=== PATIENT | female | born 1965 | race American Indian/Alaskan Native ===

== ENCOUNTER 2018-03-24 12:14 | Emergency (ER) | payer OTHER ==
[2018-03-24 12:49] VITALS: RESP 18; TEMP 98.7
[2018-03-24] MEDS ORDERED: Sodium Chloride 0.9% 500 ML IV STA (13:19)
--- NOTE | 2018-03-24 13:22 | ED PDOC ---
Arrival/HPI - General Chief Complaint: GI Problem Time Seen by Provider: 03/24/18 12:28 Historian: Patient - History of Present Illness Narrative History of Present Illness (Text): 03/24/18 13:23 52 f with pmhx of stenosis presents to the ED with diarrhea for the past 2 months. Patient reports constant diarrhea episodes and states she experiences chills. Patient states her primary care doctor advised her to drink water and see a GI specialist. Patient notes her appointment with GI doctor is on Monday but she came to the ER today due to persistent symptoms. Patient denies any fever, nausea, vomiting or any other complaints. PMD: Dr. Oswald GI Doctor: Dr. Feng Time/Duration: > month (2 months) Symptom Onset: Gradual Symptom Course: Unchanged Activities at Onset: Light Context: Home Past Medical History - Provider Review Nursing Documentation Reviewed: Yes - Cardiac Hx Cardiac Disorders: No - Pulmonary Hx Respiratory Disorders: No - Neurological Hx Neurological Disorder: No - HEENT Hx HEENT Disorder: No - Renal Hx Renal Disorder: No - Endocrine/Metabolic Hx Endocrine Disorders: No - Hematological/Oncological Hx Blood Disorders: No - Integumentary Hx Dermatological Disorder: No - Musculoskeletal/Rheumatological Hx Arthritis: Yes Hx Back Pain: Yes - Psychiatric Hx Substance Use: No - Surgical History Other/Comment: Left breast cancer Family/Social History - Physician Review Nursing Documentation Reviewed: Yes Family/Social History: No Known Family HX Smoking Status: Never Smoked Hx Alcohol Use: No Hx Substance Use: No Allergies/Home Meds Allergies/Adverse Reactions: Allergies Sulfa (Sulfonamide Antibiotics) Allergy (Verified 03/24/18 12:50) URTICARIA Review of Systems - Physician Review All systems were reviewed & negative as marked: Yes - Review of Systems Constitutional: Other (chills). absent: Fevers Gastrointestinal: Diarrhea. absent: Nausea, Vomiting Physical Exam - Physical Exam Narrative Physical Exam (Text): 03/24/18 13:30 Gen: VS reviewed, alert, well developed, well nourished, nontoxic, mild distress. ENT: dry mucous membrane. Eye: EOMI, PERRL. Neck: no JVD, supple, no adenopathy. CV: regular rate, regular rhythm, no rubs, no murmur, no gallops, S1, S2, pulses equal and strong. Pulm: no distress, clear to auscultation, no wheeze, no rhonchi, breath sounds equal, no rales. Abd: soft, nontender, no guarding, no rebound, no rigidity, normal bowel sounds. Ext: no edema. Skin: good color, no rash, no cyanosis. Psych: responds appropriately to questions, normal affect. Neuro: oriented x 3, CN2-12 intact grossly, motor intact, sensation intact. Vital Signs Reviewed: Yes Vital Signs Temp Pulse Resp BP Pulse Ox 03/24/18 12:47 98.7 F 97 H 18 121/89 99 Temperature: Afebrile Blood Pressure: Normal Pulse: Tachycardic Respiratory Rate: Normal Appearance: Positive for: Well-Appearing, Non-Toxic Medical Decision Making ED Course and Treatment: 03/24/18 15:59 patient seen for chronic diarrhea, intermittent with formed stools, no fever, no bloody stools, c. diff is on the differential however i will defer antibiotics at this time as the patient has unremarkable labs, is nontoxic, has no bloody stools or abdominal pain. patient has an upcoming appt with a gastroenteroloigst as will be schedule for a colonoscopy. patient understands and agrees with plan to discharge and will wait for stools studies to dictate future medical management. 03/25/18 14:49 today received phone call from lab regarding positive c. diff studies. i have placed multiple phone calls to the patient's under the numbers provided. i have also placed a call to dr. feng to inform him of the abnormal finding. it was agreed to placed the patient on flagyl and for the patient to keep her upcoming appt. - Scribe Statement The provider has reviewed the documentation as recorded by the Adis Tom All medical record entries made by the Scribe were at my direction and personally dictated by me. I have reviewed the chart and agree that the record accurately reflects my personal performance of the history, physical exam, medical decision making, and the department course for this patient. I have also personally directed, reviewed, and agree with the discharge instructions and disposition. Disposition/Present on Arrival - Present on Arrival Any Indicators Present on Arrival: No History of DVT/PE: No History of Uncontrolled Diabetes: No Urinary Catheter: No History of Decub. Ulcer: No History Surgical Site Infection Following: None - Disposition Have Diagnosis and Disposition been Completed?: Yes Diagnosis: Chronic diarrhea Disposition: HOME/ ROUTINE Disposition Time: 16:02 Patient Plan: Discharge Condition: STABLE Discharge Instructions (ExitCare): Diarrhea in Adolescents and Adults Additional Instructions: Keep your appointment with the incinerator plant laborer. Let your doctor know that we sent your stools for studies for analysis. you can retrieve the results with medical records to take to your doctor. HILLARY MIKE, thank you for letting us take care of you today. Your provider was Dr. Oscar Silvestre and you were treated for chronic diarrhea. The emergency medical care you received today was directed at your acute symptoms. If you were prescribed any medication, please fill it and take as directed. It may take several days for your symptoms to resolve. Return to the Emergency Department if your symptoms worsen, do not improve, or if you have any other problems. Please contact your doctor or call one of the physicians/clinics you have been referred to that are listed on the Patient Visit Information form that is included in your discharge packet. Bring any paperwork you were given at discharge with you along with any medications you are taking to your follow up visit. Our treatment cannot replace ongoing medical care by a primary care provider outside of the emergency department. Thank you for allowing the [facility] team to be part of your care today. If you had an X-Ray or CT scan: A Radiologist will review the ED reading if any change in treatment is needed we will contact you. If you had a blood, urine, or wound culture: It will take several days for the results, if any change in treatment is needed we will contact you. If you had an STI test: It will take 48 hours for the results. Please call after 1 week if you have not heard back. Referrals: PCP,NO [Primary Care Provider] - Follow up with primary Forms: [employer] (Arabic)
[2018-03-24 14:26] LABS: BASO # 0.01 K/mm3 (0.0-2.0); BASO % 0.2 % (0.0-3.0); EOS # 0.1 (0.0-0.7); EOS % 1.1 % (1.5-5.0); GRAN # 3.7 (1.4-6.5); GRAN % 67.9 % (50.0-68.0); HEMOGLOBIN 16.6 g/dL (12.0-16.0); LYMPH # 1.2 (1.2-3.4); MEAN CELL VOLUME 90.6 fl (80.0-105.0); MEAN CORPUSCULAR HEMOGLOBIN 31.9 pg (25.0-35.0); MEAN CORPUSCULAR HGB CONC 35.2 g/dl (31.0-37.0); MEAN PLATELET VOLUME 9.9 fl (7.0-11.0); MONO # 0.5 (0.1-0.6); MONO % 8.8 % (1.0-6.0); RBC 5.21 10^6/uL (3.5-6.1); RED CELL DISTRIBUTION WIDTH 13.1 % (11.5-14.5); WHITE BLOOD COUNT 5.5 10^3/uL (4.5-11.0)
[2018-03-24 14:40] LABS: ALBUMIN 4.7 g/dL (3.0-4.8); BLOOD UREA NITROGEN 13 mg/dL (7-21); CALCIUM 9.7 mg/dL (8.4-10.5); GFR NON-AFRICAN AMERICAN > 60
[2018-03-24 14:48] LABS: ALT/SGPT 22 U/L (7-56); AST/SGOT 35 U/L (14-36)
[2018-03-24 16:26] VITALS: BP 132/70; PULSE 78; O2SAT 98
== END 2018-03-24 16:25 | disposition home or self-care (01) ==
LOC: ED 12:14
DX: K52.9 Noninfective gastroenteritis and colitis, unspecified (principal)

== ENCOUNTER 2018-07-01 12:20 | Emergency (ER) | payer OTHER ==
[2018-07-01 12:39] VITALS: RESP 18
[2018-07-01] MEDS ORDERED: Sodium Chloride 0.9% 1,000 ML IV STA (12:59)
[2018-07-01] MEDS ORDERED: Atrop/Hyosc/Scopal/PB Elixir (120 ml) PO STA (12:59)
[2018-07-01] MEDS ORDERED: Alum-Mag Hydrox-Simethicone Susp (30 mL) PO STA (12:59)
[2018-07-01 13:13] LABS: PH,URINE 6.5 (4.7-8.0); URINE BILIRUBIN MODERATE (NEGATIVE); URINE BLOOD LARGE (NEGATIVE); URINE GLUCOSE (UA) NEGATIVE (NEGATIVE); URINE LEUKOCYTE ESTERASE MODERATE Leu/uL (NEGATIVE); URINE PROTEIN >=300 mg/dL (<30 mg/dL)
[2018-07-01 13:15] LABS: URINE APPEARANCE BLOODY (CLEAR); URINE COLOR DARK BROWN (YELLOW)
[2018-07-01 13:22] LABS: URINE BACTERIA LARGE /hpf; URINE RBC TNTC /hpf (0-2); URINE WBC TNTC /hpf (0-6)
--- NOTE | 2018-07-01 13:24 | ED PDOC ---
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 Patient describes pain similar to menstrual cramping, however with associated dysuria starting this morning. Also, patient mentions upon using the bathroom this morning, she noticed blood in her urine, however is uncertain if she is having a vaginal bleed or hematuria. Patient reports also experiencing nausea for the past 3 days, diarrhea since the beginning of the week, and had 1 episode of vomiting yesterday while brushing her teeth. Patient notes she was last here 03/2018 for C. Diff. Her GI physician, located in [place], instructed patient to go on FOT diet (avoiding consumption of garlic, sauce, dairy, fructose, sucrose, etc.), as patient has experienced severe pain whenever eating any fried food. Also, patient mentions stool has been appearing green recently. Patient denies any fever, chills, or any other complaints at this time. PMD: Dr. Oswald GI: Dr. Feng (located in [place]) Past Medical History - Provider Review Nursing Documentation Reviewed: Yes - Infectious Disease Hx of Infectious Diseases: None - Reproductive Menopause: No - Cardiac Hx Cardiac Disorders: No - Pulmonary Hx Respiratory Disorders: No - Neurological Hx Neurological Disorder: No - HEENT Hx HEENT Disorder: No - Renal Hx Renal Disorder: No - Endocrine/Metabolic Hx Endocrine Disorders: No - Hematological/Oncological Hx Blood Disorders: No - Integumentary Hx Dermatological Disorder: No - Musculoskeletal/Rheumatological Hx Arthritis: Yes Hx Back Pain: Yes - Psychiatric Hx Substance Use: No - Surgical History Other/Comment: Left breast cancer - Anesthesia Hx Anesthesia: No Family/Social History - Physician Review Nursing Documentation Reviewed: Yes Family/Social History: No Known Family HX Smoking Status: Never Smoked Hx Alcohol Use: No Hx Substance Use: No Allergies/Home Meds Allergies/Adverse Reactions: Allergies Sulfa (Sulfonamide Antibiotics) Allergy (Verified 03/24/18 12:50) URTICARIA sulfamethoxazole [From Bactrim] Allergy (Verified 07/01/18 12:41) ITCHING trimethoprim [From Bactrim] Allergy (Verified 07/01/18 12:41) ITCHING Home Medications: Home Meds Medication Instructions Recorded Confirmed Famotidine [Pepcid] 40 mg PO DAILY 07/01/18 07/01/18 Review of Systems - Physician Review All systems were reviewed & negative as marked: Yes - Review of Systems Constitutional: absent: Fevers, Night Sweats Gastrointestinal: Abdominal Pain (lower region), Stool Changes (green stool), Diarrhea, Nausea, Vomiting Genitourinary Female: Other (patient is uncertain if she has been experiencing vaginal bleeding or hematuria.) Physical Exam Vital Signs Reviewed: Yes Vital Signs Temp Pulse Resp BP Pulse Ox 07/01/18 12:34 98.6 F 98 H 18 160/98 H 99 07/01/18 12:20 98.6 F 98 H 18 160/98 H 99 Temperature: Afebrile Blood Pressure: Hypertensive Pulse: Regular Respiratory Rate: Normal Appearance: Positive for: Well-Appearing, Non-Toxic, Comfortable Pain Distress: None Mental Status: Positive for: Alert and Oriented X 3 - Systems Exam Head: Present: Atraumatic, Normocephalic Pupils: Present: PERRL Extroacular Muscles: Present: EOMI Conjunctiva: Present: Normal Mouth: Present: Moist Mucous Membranes Neck: Present: Normal Range of Motion Respiratory/Chest: Present: Clear to Auscultation, Good Air Exchange. No: Respiratory Distress, Accessory Muscle Use Cardiovascular: Present: Regular Rate and Rhythm, Normal S1, S2. No: Murmurs Abdomen: Present: Tenderness (periumbilical and suprapubic tenderness). No: Distention, Peritoneal Signs Back: Present: Normal Inspection Upper Extremity: Present: Normal Inspection. No: Cyanosis, Edema Lower Extremity: Present: Normal Inspection. No: Edema Neurological: Present: GCS=15, CN II-XII Intact, Speech Normal Skin: Present: Warm, Dry, Normal Color. No: Rashes Psychiatric: Present: Alert, Oriented x 3, Normal Insight, Normal Concentration Medical Decision Making ED Course and Treatment: 07/01/18 13:26 Impression: 52 year old female with lower abdominal pain. Physical exam shows periumbilical and suprapubic tenderness; no other acute findings on examination. Plan: -- Labs --Rocephin -- Toradol -- IV Fluids -- Urine Culture -- Transvaginal Ultrasound -- Reassess and disposition Prior Visits: Notes and results from previous visits were reviewed. Patient was last seen in the emergency department on 03/24/2018 for constant diarrhea and was tested positive for C diff. She received multiple antibiotics. Progress Notes: 07/01/18 14:02 UA positive for blood, nitrites and many bacteria. US pending. Rocephin ordered. - Lab Interpretations Lab Results: 07/01/18 13:35 07/01/18 13:35 Lab Results 07/01/18 13:35: PT 13.7 H, INR 1.23, APTT 32.6 07/01/18 13:35: Sodium 142, Potassium 3.8, Chloride 107, Carbon Dioxide 27, Anion Gap 11, BUN 12, Creatinine 0.8, Est GFR ( Amer) > 60, Est GFR (Non- Af Amer) > 60, Random Glucose 90, Calcium 9.5, Magnesium 2.1, Total Bilirubin 0.6, AST 24, ALT 15, Alkaline Phosphatase 72, Total Protein 7.8, Albumin 3.7, Globulin 4.1, Albumin/Globulin Ratio 0.9 L, Lipase 53 07/01/18 13:35: WBC 6.8 D, RBC 4.91, Hgb 15.2, Hct 45.2, MCV 92.1, MCH 31.0, MCHC 33.6, RDW 13.3, Plt Count 211, MPV 9.9, Neut % (Auto) 75.3 H, Lymph % ( Auto) 14.7 L, [place] % (Auto) 8.9 H, Eos % (Auto) 1.0 L, Baso % (Auto) 0.1, Lymph # (Auto) 1.0 L, [place] # (Auto) 0.6, Eos # (Auto) 0.1, Baso # (Auto) 0.01, Absolute Neuts (auto) 5.13 07/01/18 13:00: Urine Color Dark brown, Urine Appearance Bloody, Urine pH 6.5, Ur Specific [place] 1.015, Urine Protein >=300 H, Urine Glucose (UA) Negative, Urine Ketones Negative, Urine Blood Large H, Urine Nitrate Positive H, Urine Bilirubin Moderate H, Urine Urobilinogen 1.0 H, Ur Leukocyte Esterase Moderate H , Urine RBC Tntc H, Urine WBC Tntc H, Urine Bacteria Large I have reviewed the lab results: Yes - RAD Interpretation Radiology Orders: 07/01/18 12:56 ABD & PELVIS IV CONTRAST ONLY [CT] Stat - Medication Orders Current Medication Orders: Sodium Chloride (Sodium Chloride 0.9%) 1,000 mls @ 999 mls/hr IV .Q1H1M STA Stop: 07/01/18 13:59 Discontinued Medications Al Hydrox/Mg Hydrox/Simethicone (Maalox Plus 30 Ml) 30 ml PO STAT STA Stop: 07/01/18 13:00 Belladonna/Phenobarbital ( Elixir) 5 ml PO STAT STA Stop: 07/01/18 13:00 Famotidine (Pepcid) 20 mg IVP STAT STA Stop: 07/01/18 13:00 Ceftriaxone Sodium (Rocephin 1 Gram Ivpb) 1 gm in 100 mls @ 100 mls/hr IVPB STAT STA; Protocol Stop: 07/01/18 14:57 Last Admin: 07/01/18 14:35 Dose: 100 mls/hr eMAR Start Stop Document 07/01/18 14:35 SRE (Rec: 07/01/18 14:36 SRE [id number]) Intravenous Solution Start Date 07/01/18 Start Time 14:35 End Date 07/01/18 End time 15:35 Total Infusion Time 60 Discontinued Medications Sodium Chloride (Sodium Chloride 0.9%) 1,000 mls @ 999 mls/hr IV .Q1H1M STA Stop: 07/01/18 13:59 Last Admin: 07/01/18 13:38 Dose: 999 mls/hr eMAR Start Stop Document 07/01/18 13:38 SRE (Rec: 07/01/18 13:39 SRE [id number]) Intravenous Solution Start Date 07/01/18 Start Time 13:39 End Date 07/01/18 End time 14:40 Total Infusion Time 61 Ketorolac Tromethamine (Toradol) 30 mg IVP STAT STA Stop: 07/01/18 13:17 Last Admin: 07/01/18 13:39 Dose: 30 mg MAR Pain Assessment Document 07/01/18 13:39 SRE (Rec: 07/01/18 13:39 SRE [id number]) Pain Reassessment Is this a pain reassessment? Yes Sleep Is patient sleeping during reassessment? No Presence of Pain Presence of Pain Yes Pain Scale Used Protocol: PSCALES Pain Scale Used Numeric Location Pain Location Body Site Abdomen Description Description Intermittent IVP Administration Document 07/01/18 13:39 SRE (Rec: 07/01/18 13:39 SRE [id number]) Charges for Administration # of IVP Administrations 1 - Scribe Statement The provider has reviewed the documentation as recorded by the Scribe Rosalinad Rodrigez Provider Scribe Attestation: All medical record entries made by the Scribe were at my direction and personally dictated by me. I have reviewed the chart and agree that the record accurately reflects my personal performance of the history, physical exam, medical decision making, and the department course for this patient. I have also personally directed, reviewed, and agree with the discharge instructions and disposition. Disposition/Present on Arrival - Present on Arrival Any Indicators Present on Arrival: No History of DVT/PE: No History of Uncontrolled Diabetes: No Urinary Catheter: No History of Decub. Ulcer: No History Surgical Site Infection Following: None - Disposition Have Diagnosis and Disposition been Completed?: Yes Diagnosis: UTI (urinary tract infection) Disposition: HOME/ ROUTINE Patient Plan: Discharge Condition: STABLE Discharge Instructions (ExitCare): Urinary Tract Infection, Adult (DC) Print Language: BENINESE Additional Instructions: All medical record entries made by the Scribe were at my direction and personally dictated by me. I have reviewed the chart and agree that the record accurately reflects my personal performance of the history, physical exam, medical decision making, and the department course for this patient. I have also personally directed, reviewed, and agree with the discharge instructions and disposition. Please follow up with Dr. Owsald in 1 week Please schedule an appointment with a urologist Prescriptions: Cephalexin [cephalexin] 500 mg PO BID 5 Days #10 cap Phenazopyridine [Pyridium] 200 mg PO TID 2 Days #6 tab Referrals: Christine Oswald MD [Primary Care Provider] - Follow up with primary Froylan Boyle MD [Staff Provider] - Follow up with primary Forms: [employer] (Thai)
[2018-07-01 13:55] LABS: BASO # 0.01 K/mm3 (0.0-2.0); BASO % 0.1 % (0.0-3.0); EOS # 0.1 (0.0-0.7); HEMOGLOBIN 15.2 g/dL (12.0-16.0); LYMPH % 14.7 % (22.0-35.0); MEAN CELL VOLUME 92.1 fl (80.0-105.0); MEAN CORPUSCULAR HGB CONC 33.6 g/dl (31.0-37.0); MEAN PLATELET VOLUME 9.9 fl (7.0-11.0); MONO # 0.6 (0.1-0.6); MONO % 8.9 % (1.0-6.0); RBC 4.91 10^6/uL (3.5-6.1); RED CELL DISTRIBUTION WIDTH 13.3 % (11.5-14.5); WHITE BLOOD COUNT 6.8 10^3/uL (4.5-11.0)
[2018-07-01 13:57] LABS: ALB/GLOB RATIO 0.9 (1.1-1.8); ALBUMIN 3.7 g/dL (3.0-4.8); ALT/SGPT 15 U/L (7-56); AST/SGOT 24 U/L (14-36); BLOOD UREA NITROGEN 12 mg/dL (7-21); CALCIUM 9.5 mg/dL (8.4-10.5); GFR NON-AFRICAN AMERICAN > 60; LIPASE 53 U/L (23-300)
[2018-07-01] MEDS ORDERED: cefTRIAXone 1 gm 1 GM/100 ML BAG IVPB STA (13:58)
[2018-07-01 13:59] LABS: INR 1.23; PARTIAL THROMBOPLASTIN TIME 32.6 Seconds (26.9-38.3); PROTHROMBIN TIME 13.7 SECONDS (9.4-12.5)
[2018-07-01 15:00] VITALS: BP 148/87; PULSE 74; TEMP 98.4; O2SAT 96
--- NOTE | 2018-07-01 15:12 | US ---
Date of service: 07/01/2018 HISTORY: h/o d c w/ pelvic pain COMPARISON: None available. TECHNIQUE: Transvaginal pelvic ultrasound was performed. FINDINGS: UTERUS: Measures 6.8 x 3.2 x 4.1 cm. Anteverted, normal in size and appearance. No fibroid or other mass lesion seen. ENDOMETRIUM: Measures 2.6 mm in diameter. Unremarkable. CERVIX: There is a 4 mm nabothian cyst in the posterior wall. No cervical abnormality identified. RIGHT OVARY: Measures 1.6 x 1.1 x 1.8 cm. No solid mass. Normal flow. LEFT OVARY: Measures 2.2 x 2.1 x 1.6 cm. No solid mass. Normal flow. FREE FLUID: No significant free fluid noted. OTHER FINDINGS: None. IMPRESSION: Unremarkable pelvic ultrasound.
== END 2018-07-01 15:11 | disposition home or self-care (01) ==
LOC: ED 12:20
DX: N39.0 Urinary tract infection, site not specified (principal)
CPT/HCPCS: 76830; 80053; 81001; 83690; 83735; 85025; 85610; 85730; 87086; 96361; 96365; 96375; 99284; J0696; J1885; J7030